=== PATIENT | male | born 1985 | race Asian ===

== ENCOUNTER 2024-06-18 23:48 | Emergency (ER) | payer OTHER ==
[2024-06-18 23:52] VITALS: TEMP 98.1; BMI 19.9
[2024-06-19] MEDS ORDERED: PROPOFOL 20 ML ONE (00:42)
[2024-06-19] MEDS ORDERED: IBUPROFEN 600 MG TABLET (FP) PO ONE (01:31)
[2024-06-19] MEDS: IBUPROFEN 600 MG TABLET (FP) PO ONE (01:34)
[2024-06-19 04:42] VITALS: BP 133/90; PULSE 68; RESP 18
== END 2024-06-19 01:56 | disposition home or self-care (01) ==
LOC: FER 23:48
DX: S43.014A Anterior dislocation of right humerus, initial encounter (principal); V00.131A Fall from skateboard, initial encounter
CPT/HCPCS: 73030-TC-RT-FY; 99283-25